=== PATIENT | female | born 1960 | race American Indian/Alaskan Native ===

== ENCOUNTER 2020-05-10 10:38 | Outpatient (CLI) | payer BC ==
--- NOTE | 2020-05-10 12:25 | Mammography Report ---
DIGITAL SCREENING MAMMOGRAM WITH CAD, 05/10/2020 INDICATION: Routine screening mammography. TECHNIQUE: Digital bilateral 2D mammography was obtained in the craniocaudal and mediolateral obliq ue projections. This examination was interpreted with the benefit of Computer-Aided Detection analysi s. COMPARISON: None. FINDINGS: Breast Density: The breasts are heterogeneously dense, which may obscure small masses. There is no evidence of dominant mass, suspicious calcifications or architectural distortion in eithe r breast. IMPRESSION: Follow up recommendation: Routine yearly BI-RADS Category 1: Negative. A "normal" or negative report should not discourage follow up or biopsy of a clinically significant f inding. A written summary of these findings will be mailed to the patient. The patient will be entered into a mammography reporting system which will generate a reminder letter for the patient's next appointmen t at the appropriate interval. The [employer] recommends yearly mammograms starting at age 40 and continuing as l nova as a woman is in good health. Breast MRI is recommended for women with an approximate 20-25% or greater lifetime risk of breast cancer, including women with a strong family history of breast or ova lyubov cancer or who have been treated for Hodgkin's disease. Signer Name: Ankush Antonio MD Signed: 05/10/2020 12:21 PM Workstation Name: [id number]
== END 2020-05-10 10:39 | disposition home or self-care (01) ==
LOC: MAMMO 10:38
DX: Z12.31 Encounter for screening mammogram for malignant neoplasm of breast (principal)
CPT/HCPCS: 77067

== ENCOUNTER 2021-12-12 13:00 | Outpatient (CLI) | payer BC ==
--- NOTE | 2021-12-12 15:53 | XRay Report ---
THORACIC SPINE 2 VIEWS INDICATION: Back pain. COMPARISON: No relevant prior imaging study available. FINDINGS: VERTEBRAE: No acute fracture. Normal alignment. DISC SPACES: No significant abnormality. FACET JOINTS: No significant abnormality. SOFT TISSUES: No significant abnormality. ADDITIONAL FINDINGS: No additional significant findings. IMPRESSION: No significant abnormality of the thoracic spine. LUMBAR SPINE 3 VIEWS INDICATION: Back pain. COMPARISON: No relevant prior imaging study available. FINDINGS: VERTEBRAE: No acute fracture. Normal alignment. DISC SPACES: No significant abnormality. FACET JOINTS: No significant abnormality. SOFT TISSUES: No significant abnormality. ADDITIONAL FINDINGS: No additional significant findings. IMPRESSION: No significant abnormality of the lumbar spine. Signer Name: Kevin Ramirez MD Signed: 12/12/2021 3:49 PM Workstation Name: [email or web address]
== END 2021-12-12 13:01 | disposition home or self-care (01) ==
LOC: XRAY 13:00
PROVIDERS: ATTEND Nurse Practitioner Family
DX: M54.16 Radiculopathy, lumbar region (principal); M54.6 Pain in thoracic spine
CPT/HCPCS: 72070; 72100